=== PATIENT | female | born 1955 | race Caucasian/White ===

== ENCOUNTER → 2018-01-23 | Outpatient (CLI) | payer OTHER ==
[2018-01-23 14:20] LABS: BASO # 0.1 10^3/uL (0.0-0.2); BASO % 1.2 % (0.0-1.0); EOS # 0.4 10^3/uL (0.0-0.50); EOS % 4.7 % (0.0-3.0); HEMATOCRIT 38.2 % (36.0-47.0); HEMOGLOBIN 12.6 g/dl (12.0-16.0); IMMATURE GRANULOCYTE % 0.1 % (0-3.0); LYMPH # 3.1 10^3/uL (1.5-4.5); LYMPH % 40.1 % (24.0-44.0); MEAN CORPUSCULAR HEMOGLOBIN 27.6 pg (27.0-33.0); MEAN CORPUSCULAR VOLUME 83.8 fl (80.0-96.0); MONO # 0.7 10^3/uL (0.0-0.8); MONO % 8.6 % (0.0-5.0); NEUTROPHILS # 3.5 10^3/uL (1.8-7.7); NEUTROPHILS % 45.3 % (36.0-66.0); PLATELET COUNT, AUTOMATED 259 10^3/uL (150-450); RED BLOOD COUNT 4.56 10^6/uL (4.00-5.40); RED CELL DISTRIBUTION WIDTH 13.8 % (11.5-14.5); WHITE BLOOD COUNT 7.7 10^3/uL (4.0-10.0)
[2018-01-23 14:47] LABS: ALBUMIN 3.8 GM/DL (3.2-5.2); ALKALINE PHOSPHATASE 58 U/L (45-117); ALT/SGPT 20 U/L (12-78); ANION GAP 6 MEQ/L (8-16); AST/SGOT 13 U/L (7-37); BILIRUBIN,TOTAL 0.4 MG/DL (0.2-1.0); BLOOD UREA NITROGEN 21 MG/DL (7-18); CALCIUM LEVEL 9.1 MG/DL (8.8-10.2); CARBON DIOXIDE LEVEL 28 MEQ/L (21-32); CHLORIDE LEVEL 107 MEQ/L (98-107); CHOLESTEROL LEVEL 256 MG/DL (<200); GLOMERULAR FILTRATION RATE > 60.0 (>45); GLUCOSE, FASTING 97 MG/DL (70-100); HDL CHOLESTEROL 50 MG/DL (>40); LDL CHOLESTEROL 152.8 MG/DL (<100); NON-HDL-C 206 MG/DL; POTASSIUM SERUM 4.4 MEQ/L (3.5-5.1); SODIUM LEVEL 141 MEQ/L (136-145); TOTAL PROTEIN 7.6 GM/DL (6.4-8.2); TRIGLYCERIDES LEVEL 266 MG/DL (<150)
== END ==
LOC: M WUC 08:55
DX: E03.9 Hypothyroidism, unspecified (principal); I10 Essential (primary) hypertension; E78.5 Hyperlipidemia, unspecified; F41.1 Generalized anxiety disorder
CPT/HCPCS: 84443

== ENCOUNTER 2019-03-20 08:31 | Emergency (ER) | payer BC, MEDICAID, OTHER ==
[~2019-03-20] VITALS: Ht 167.6 cm; Wt 112.7 kg
[2019-03-20] MEDS ORDERED: LISI10TA2 (08:42)
[2019-03-20] MEDS ORDERED: ESCI10TA2 (08:42)
[2019-03-20] MEDS ORDERED: ALPR0.25 (08:42)
[2019-03-20] MEDS ORDERED: CYCL10TA (08:42)
[2019-03-20] MEDS ORDERED: LEVO75TA4 (08:42)
[2019-03-20 09:17] LABS: BASO % 0.3 % (0.0-1.0); EOS % 0.4 % (0.0-3.0); HEMATOCRIT 36.8 % (36.0-47.0); HEMOGLOBIN 12.3 g/dl (12.0-15.5); LYMPH # 0.6 10^3/uL (1.5-4.5); LYMPH % 5.7 % (24.0-44.0); MEAN CORPUSCULAR HGB CONC 33.4 g/dl (32.0-36.5); MEAN CORPUSCULAR VOLUME 83.6 fl (80.0-96.0); MONO # 0.4 10^3/uL (0.0-0.8); NEUTROPHILS # 9.1 10^3/uL (1.8-7.7); PLATELET COUNT, AUTOMATED 184 10^3/uL (150-450); WHITE BLOOD COUNT 10.3 10^3/uL (4.0-10.0)
[2019-03-20] MEDS ORDERED: ACETAMINOPHEN TAB 650MG DOSE (2X325MG) PO ONE (09:30)
[2019-03-20 09:50] LABS: ALBUMIN 3.4 GM/DL (3.2-5.2); ALT/SGPT 20 U/L (12-78); BILIRUBIN,DIRECT 0.3 MG/DL (0.0-0.2); BILIRUBIN,TOTAL 1.2 MG/DL (0.2-1.0); BLOOD UREA NITROGEN 14 MG/DL (7-18); CALCIUM LEVEL 8.6 MG/DL (8.8-10.2); CARBON DIOXIDE LEVEL 26 MEQ/L (21-32); CHLORIDE LEVEL 104 MEQ/L (98-107); CREATININE FOR GFR 0.97 MG/DL (0.55-1.30); GLOMERULAR FILTRATION RATE > 60.0 (>45); GLUCOSE, FASTING 136 MG/DL (70-100); LIPASE 132 U/L (73-393); POTASSIUM SERUM 3.5 MEQ/L (3.5-5.1); SODIUM LEVEL 139 MEQ/L (136-145); TOTAL PROTEIN 7.1 GM/DL (6.4-8.2)
[2019-03-20] MEDS: GASTROGRAFIN SOLUTION 30ML PO SCH ×2 (11:01→11:37)
--- NOTE | 2019-03-20 12:09 | REP ---
CHEST, TWO VIEWS: No comparison. There is no evidence of acute infiltrate. No pleural effusion is seen. The heart is normal in size. The mediastinal silhouette is unremarkable. The visualized osseous structures are intact. There are degenerative changes of the spine. IMPRESSION: No acute pulmonary disease. Electronically Signed by Epi Tatum MD 03/21/2019 10:54 A
[2019-03-20] MEDS ORDERED: ISOVUE-370 76% 100ML VIAL (Q9967) As Ordered ONE (12:28)
[2019-03-20 12:32] LABS: INFLUENZA A AMPLIFICATION NEGATIVE (NEGATIVE); INFLUENZA B AMPLIFICATION NEGATIVE (NEGATIVE)
[2019-03-20] MEDS ORDERED: AUGMENTIN 875 MG TAB PO ONE (14:15)
[2019-03-20] MEDS ORDERED: AUGM875T28 PO (14:20)
[2019-03-20 14:32] VITALS: BP 126/62
--- NOTE | 2019-03-20 14:47 | REP ---
CT ABDOMEN AND PELVIS WITH ORAL AND IV CONTRAST: TECHNIQUE: Axial contrast enhanced images from the lung bases to the pubic symphysis using 100 mL Isovue 370 intravenous contrast material with multiplanar reformations. COMPARISON: 01/30/2019, [facility]. Lung bases demonstrate mild fibrotic change, which is stable. The liver demonstrates no mass. The spleen and left adrenal are unremarkable. There is a small right adrenal nodule 1.8 cm in diameter, essentially stable since the 01/20/2006 exam and consistent with a benign adrenal adenoma. Pancreas is unremarkable. Patient has had a prior cholecystectomy with slight prominence of the biliary system as expected. Kidneys demonstrate no hydronephrosis. Oval cyst of the right kidney is again noted 1.9 cm in maximum diameter. There is atherosclerotic calcification of the abdominal aorta without aneurysm. There is diastasis of the rectus muscles with protrusion of abdominal contents anteriorly diffusely. There is scattered diverticulosis of the colon. There is thickening of a portion of the left transverse colon with surrounding streaky densities in the pericolonic fat, consistent with diverticulitis. There is no free air, free fluid, or fluid collection. No pelvic mass is seen. The urinary bladder is not distended and not well evaluated. IMPRESSION: Diverticulitis of the left transverse colon. No free air, free fluid, or fluid collection. Electronically Signed by Epi Tatum MD 03/21/2019 12:31 P
== END 2019-03-20 14:34 | disposition home or self-care (01) ==
LOC: EDBD 08:31 → M ED 08:31
DX: K57.92 Diverticulitis of intestine, part unspecified, without perforation or abscess without bleeding (principal); I10 Essential (primary) hypertension; E07.9 Disorder of thyroid, unspecified; F41.9 Anxiety disorder, unspecified; Z79.899 Other long term (current) drug therapy; Z79.890 Hormone replacement therapy; Z88.1 Allergy status to other antibiotic agents; Z88.5 Allergy status to narcotic agent; Z88.8 Allergy status to other drugs, medicaments and biological substances
CPT/HCPCS: 36415; 71046; 74177; 80048; 80076; 81001; 83690; 85025; 87502; 93041; 99285; Q9963; Q9967

== ENCOUNTER → 2019-05-30 | Outpatient (REF) | payer BC ==
[~2019-05-30] MED LIST: ALPR0.25; AUGM875T28 PO; CYCL10TA; ESCI10TA2; LEVO75TA4; LISI10TA2
[2019-05-30 16:12] LABS: CLOSTRIDIUM DIFFICILE PCR NEGATIVE (NEGATIVE)
== END ==
LOC: M LAB REF 13:31
PROVIDERS: ATTEND Internal Medicine Gastroenterology
DX: R19.7 Diarrhea, unspecified (principal)

== ENCOUNTER 2019-08-06 09:27 | Day surgery (SDC) | payer MEDICARE, BC ==
[~2019-08-06] VITALS: Ht 170.2 cm; Wt 115.2 kg
[~2019-08-06 09:27] MED LIST changes: -ALPR0.25; +ALPR0.25 PO; +BRONCHW PO; -CYCL10TA; +CYCL10TA PO; -ESCI10TA2; +ESCI10TA2 PO; -LEVO75TA4; +LEVO75TA4 PO; +LIDOCAINE 2% INJ 100 MG/5 ML SDV (FOR ANES.) As Ordered ONE; +LISI10TA15; -LISI10TA2; +NS 1,000 ML IV ONE; +PROBCAP5 PO; +PROPOFOL 200 MG/20 ML VIAL As Ordered ONE
--- NOTE | 2019-08-06 10:42 | ROOR ---
Patient Name: Hilaria Noonan Procedure Date: 08/06/2019 10:19 AM Date of : 1955 Age: 64 Room: [facility] Gender: Female Note Status: Finalized Procedure: Colonoscopy Indications: Clinically significant diarrhea of unexplained origin, Abnormal CT of the GI tract Providers: Elie ARREGUIN MD Referring MD: ADÁN MEYER Requesting Provider: Medicines: Monitored Anesthesia Care Complications: No immediate complications. Procedure: Pre-Anesthesia Assessment: - The heart rate, respiratory rate, oxygen saturations, blood pressure, adequacy of pulmonary ventilation, and response to care were monitored throughout the procedure. The Colonoscope was introduced through the anus and advanced to 10 cm into the ileum. The colonoscopy was performed without difficulty. The patient tolerated the procedure well. The quality of the bowel preparation was good. Findings: The perianal and digital rectal examinations were normal. There was evidence of a prior end-to-end colo-colonic anastomosis in the recto-sigmoid colon. This was patent and was characterized by healthy appearing mucosa. A diminutive polyp was found in the rectum. The polyp was sessile. The polyp was removed with a jumbo cold forceps. Resection and retrieval were complete. Multiple small-mouthed diverticula were found in the entire colon. The exam was otherwise normal throughout the examined colon. The terminal ileum appeared normal. Biopsies for histology were taken with a cold forceps for evaluation of microscopic colitis. Impression: - Patent end-to-end colo-colonic anastomosis, characterized by healthy appearing mucosa. - One diminutive polyp in the rectum, removed with a jumbo cold forceps. Resected and retrieved. - Mild scattered diverticulosis in the entire colon. - The colon is otherwise normal. Biopsies were taken with a cold forceps for evaluation of microscopic colitis. - The examined portion of the ileum was normal. Recommendation: - Telephone endoscopist for pathology results in 2 weeks. - Continue present medications. - Use fiber, for example Citrucel, Fibercon, Konsyl or Metamucil. - Imodium 1 tablet PO BID. - Imodium 2 tablets PO BID. Elie Arreguin MD Elie ARREGUIN MD 08/06/2019 10:42:50 AM Electronically signed by Elie ARREGUIN MD Number of Addenda: 0 Note Initiated On: 08/06/2019 10:19 AM Estimated Blood Loss: Estimated blood loss: none.
[2019-08-06 11:00] VITALS: BP 181/84
== END 2019-08-06 11:07 | disposition home or self-care (01) ==
LOC: M OPP 09:27
PROVIDERS: ATTEND Internal Medicine Gastroenterology
DX: R93.5 Abnormal findings on diagnostic imaging of other abdominal regions, including retroperitoneum (principal); R19.7 Diarrhea, unspecified; K62.1 Rectal polyp; Z98.0 Intestinal bypass and anastomosis status; K57.30 Diverticulosis of large intestine without perforation or abscess without bleeding; I10 Essential (primary) hypertension; E03.9 Hypothyroidism, unspecified; K57.32 Diverticulitis of large intestine without perforation or abscess without bleeding; M19.90 Unspecified osteoarthritis, unspecified site; F41.9 Anxiety disorder, unspecified; F32.9 Major depressive disorder, single episode, unspecified; G43.909 Migraine, unspecified, not intractable, without status migrainosus; Z87.891 Personal history of nicotine dependence; Z88.5 Allergy status to narcotic agent; Z88.8 Allergy status to other drugs, medicaments and biological substances; Z91.048 Other nonmedicinal substance allergy status; Z79.899 Other long term (current) drug therapy

== ENCOUNTER 2020-08-28 01:37 | Emergency (ER) | payer MEDICARE, BC ==
[~2020-08-28] VITALS: Ht 165.1 cm; Wt 115.9 kg
[~2020-08-28 01:37] MED LIST changes: +CYCL-707 PO; -CYCL10TA PO; -LIDOCAINE 2% INJ 100 MG/5 ML SDV (FOR ANES.) As Ordered ONE; -NS 1,000 ML IV ONE; -PROPOFOL 200 MG/20 ML VIAL As Ordered ONE
[2020-08-28 01:40] VITALS: BP 167/74
[2020-08-28] MEDS ORDERED: TRAM50TA2 PO (01:51)
[2020-08-28] MEDS ORDERED: AMOX875T2 PO (01:51)
[2020-08-28] MEDS ORDERED: FAMO1TAB11 PO (01:51)
[2020-08-28] MEDS ORDERED: GABA-1171 PO (01:51)
[2020-08-28] MEDS ORDERED: PANT40TA29 PO (01:51)
== END 2020-08-28 02:42 | disposition home or self-care (01) ==
LOC: M ED 01:37
DX: K91.89 Other postprocedural complications and disorders of digestive system (principal); K57.92 Diverticulitis of intestine, part unspecified, without perforation or abscess without bleeding; I10 Essential (primary) hypertension; F41.9 Anxiety disorder, unspecified; Z98.84 Bariatric surgery status; Z88.5 Allergy status to narcotic agent; Z88.1 Allergy status to other antibiotic agents; Z91.048 Other nonmedicinal substance allergy status; Z79.899 Other long term (current) drug therapy; Z79.2 Long term (current) use of antibiotics

== ENCOUNTER 2021-07-07 12:10 | Outpatient (RCR) | payer MEDICARE, BC | END 2021-07-29 | LOC: M PT 12:10 | PROVIDERS: ATTEND Orthopaedic Surgery | DX: M17.12 Unilateral primary osteoarthritis, left knee (principal) ==

== ENCOUNTER → 2021-07-07 | Outpatient (CLI) | payer MEDICARE, BC ==
[~2021-07-07] MED LIST changes: +AMOX875T2 PO; +ESCI10TA16 PO; -ESCI10TA2 PO; +FAMO1TAB11 PO; +GABA-1171 PO; +PANT40TA29 PO; +TRAM50TA2 PO
[2021-07-07 12:28] LABS: BASO # 0.1 10^3/uL (0.0-0.2); BASO % 1.1 % (0.0-1.0); EOS # 0.3 10^3/uL (0.0-0.5); EOS % 4.7 % (0.0-3.0); HEMATOCRIT 36.5 % (36.0-47.0); HEMOGLOBIN 12.3 g/dl (12.0-15.5); LYMPH # 2.7 10^3/uL (1.5-5.0); LYMPH % 38.2 % (24.0-44.0); MEAN CORPUSCULAR HEMOGLOBIN 28.3 pg (27.0-33.0); MEAN CORPUSCULAR HGB CONC 33.7 g/dl (32.0-36.5); MEAN CORPUSCULAR VOLUME 83.9 fl (80.0-96.0); MONO # 0.8 10^3/uL (0.0-0.8); MONO % 11.6 % (2.0-8.0); NEUTROPHILS # 3.1 10^3/uL (1.5-8.5); PLATELET COUNT, AUTOMATED 247 10^3/uL (150-450); RED BLOOD COUNT 4.35 10^6/uL (4.00-5.40)
[2021-07-07 13:02] LABS: ALBUMIN 3.7 GM/DL (3.2-5.2); PERCENT SATURATION 14.1 % (13.2-45.0)
== END ==
LOC: M LAB 11:39
PROVIDERS: ATTEND Orthopaedic Surgery
DX: M17.12 Unilateral primary osteoarthritis, left knee (principal); D50.9 Iron deficiency anemia, unspecified

== ENCOUNTER 2021-09-22 12:12 | Outpatient (RCR) | payer MEDICARE, BC ==
[~2021-09-22 12:12] MED LIST changes: -LISI10TA15; +LISI10TA24
== END 2021-09-28 ==
LOC: M PT 12:12
PROVIDERS: ATTEND Orthopaedic Surgery
DX: Z01.818 Encounter for other preprocedural examination (principal); M17.12 Unilateral primary osteoarthritis, left knee; M25.562 Pain in left knee

== ENCOUNTER 2021-09-29 10:58 | Outpatient (RCR) | payer MEDICARE, BC ==
[~2021-09-29 10:58] MED LIST changes: +LISI10TA15; -LISI10TA24
== END 2021-10-29 ==
LOC: M PT 10:58
PROVIDERS: ATTEND Orthopaedic Surgery
DX: Z96.652 Presence of left artificial knee joint (principal); M17.12 Unilateral primary osteoarthritis, left knee; M25.562 Pain in left knee

== ENCOUNTER 2022-02-21 10:38 | Inpatient (IN) | payer MEDICARE, BC ==
[~2022-02-21] VITALS: Ht 167.6 cm; Wt 101.8 kg
[~2022-02-21 10:38] MED LIST changes: -LISI10TA15; +LISI10TA24 PO
[2022-02-21 11:09] LABS: HEMATOCRIT 38.9 % (36.0-47.0); HEMOGLOBIN 13.1 g/dl (12.0-15.5); MEAN CORPUSCULAR HGB CONC 33.7 g/dl (32.0-36.5); MEAN CORPUSCULAR VOLUME 83.1 fl (80.0-96.0); PLATELET COUNT, AUTOMATED 268 10^3/uL (150-450); RED BLOOD COUNT 4.68 10^6/uL (4.00-5.40); WHITE BLOOD COUNT 5.4 10^3/uL (4.0-10.0)
[2022-02-21 11:50] LABS: ACETAMINOPHEN LEVEL < 2.0 UG/ML (10.0-30.0); ALT/SGPT 24 U/L (12-78); BILIRUBIN,DIRECT < 0.1 MG/DL (0.0-0.2); BILIRUBIN,TOTAL 0.3 MG/DL (0.2-1.0); BLOOD UREA NITROGEN 22 MG/DL (7-18); CALCIUM LEVEL 9.5 MG/DL (8.8-10.2); CARBON DIOXIDE LEVEL 26 MEQ/L (21-32); CHLORIDE LEVEL 107 MEQ/L (98-107); CREATININE FOR GFR 1.41 MG/DL (0.55-1.30); ETHYL ALCOHOL (ETHANOL) < 0.003 % (0.000-0.010); GLOMERULAR FILTRATION RATE 39.5 (>45); GLUCOSE, FASTING 103 MG/DL (70-100); POTASSIUM SERUM 3.9 MEQ/L (3.5-5.1); SALICYLATE LEVEL < 1.7 MG/DL (5.0-30.0); SODIUM LEVEL 140 MEQ/L (136-145); TOTAL PROTEIN 7.3 GM/DL (6.4-8.2)
[2022-02-21 12:06] LABS: AMPHETAMINES LEVEL URINE NEGATIVE (NEGATIVE); BARBITURATES URINE NEGATIVE (NEGATIVE); BENZODIAZEPINES URINE NEGATIVE (NEGATIVE); CANNABINOIDS URINE POSITIVE (NEGATIVE); COCAINE METABOLITE URINE NEGATIVE (NEGATIVE); METHADONE URINE NEGATIVE (NEGATIVE); OPIATES URINE NEGATIVE (NEGATIVE); PHENCYCLIDINE URINE NEGATIVE (NEGATIVE)
[2022-02-21 12:41] LABS: RSV AMPLIFICATION NEGATIVE (NEGATIVE)
[2022-02-21] MEDS ORDERED: LEVO88TA3 PO (13:36)
[2022-02-21] MEDS ORDERED: MELO15TA28 PO (13:45)
[2022-02-21] MEDS ORDERED: HYDR-3363 PO (13:45)
[2022-02-21] MEDS ORDERED: FENO134C16 PO (13:45)
[2022-02-21] MEDS ORDERED: MED NOTE (13:50)
[2022-02-21] MEDS ORDERED: HOME MED LIST COMPLETE! XX SCH (13:55)
[2022-02-21] MEDS ORDERED: ACETAMINOPHEN 325 MG TAB PO ONE (14:30)
[2022-02-21] MEDS ORDERED: NICOTINE 21MG/24HR 1 EA TRANSDERMAL TD PRN (21:40)
[2022-02-21] MEDS ORDERED: MAALOX 30 ML SUSP *UDC PO PRN (21:40)
[2022-02-21] MEDS ORDERED: LORazepam 1 MG TAB PO PRN (21:40)
[2022-02-21] MEDS ORDERED: MOM 30ML SUSPENSION UDC PO PRN (21:40)
[2022-02-21] MEDS ORDERED: OLANZapine ORAL DISINTEGRATING TAB 5MG PO PRN (21:40)
[2022-02-21] MEDS ORDERED: ACETAMINOPHEN TAB 650MG DOSE (2X325MG) PO PRN (21:40)
[2022-02-21] MEDS ORDERED: ALPRAZolam 0.5 MG TAB PO ONE (21:40)
[2022-02-21] MEDS ORDERED: hydrOXYzine 10 MG TAB PO ONE (22:15)
[2022-02-21] MEDS ORDERED: diphenhydrAMINE 25MG CAP PO ONE (22:15)
[2022-02-22] MEDS: traZODone 50 MG TAB PO PRN ×2 (04:33→21:02)
[2022-02-22] MEDS: LEVOTHYROXINE 88MCG TABLET (0.088 MG) PO SCH (04:33)
[2022-02-22] MEDS: ALPRAZolam 0.25 MG TAB PO SCH ×3 (09:00→21:02)
[2022-02-22] MEDS ORDERED: MELOXICAM (MOBIC) 7.5 MG TAB PO SCH (09:00)
[2022-02-22] MEDS ORDERED: LEVOTHYROXINE 75MCG TABLET (0.075MG) PO SCH (09:00)
[2022-02-22] MEDS: FENOFIBRATE 145MG TABLET (TRICOR) PO SCH (14:54)
[2022-02-22] MEDS: hydroCHLOROthiazide 12.5 MG CAPSULE PO SCH (14:54)
[2022-02-22 18:00] VITALS: BP 132/63
[2022-02-23] MEDS: LEVOTHYROXINE 88MCG TABLET (0.088 MG) PO SCH (06:01)
[2022-02-23 07:11] VITALS: BP 153/72
[2022-02-23] MEDS: ALPRAZolam 0.25 MG TAB PO SCH (09:00)
[2022-02-23 09:34] VITALS: BP 118/72
[2022-02-23] MEDS: FENOFIBRATE 145MG TABLET (TRICOR) PO SCH (09:34)
[2022-02-23] MEDS: hydroCHLOROthiazide 12.5 MG CAPSULE PO SCH (09:34)
[2022-02-23] MEDS ORDERED: TRAZ-252 PO (11:28)
== END 2022-02-23 13:21 | disposition home or self-care (01) | DRG 881 ==
LOC: M ED 10:38 → M ED INP 21:37 → M PSY 02-22 04:14
PROVIDERS: ADMIT Psychiatry & Neurology Psychiatry; ATTEND Psychiatry & Neurology Psychiatry
DX: F43.21 Adjustment disorder with depressed mood (principal); Z79.899 Other long term (current) drug therapy; Z88.5 Allergy status to narcotic agent; Z88.1 Allergy status to other antibiotic agents; Z88.8 Allergy status to other drugs, medicaments and biological substances; Z91.048 Other nonmedicinal substance allergy status

== ENCOUNTER → 2023-01-31 | Outpatient (CLI) | payer MEDICARE, BC ==
[~2023-01-31] MED LIST changes: +FENO134C20 PO; +HYDR-3363 PO; +LEVO88TA3 PO; +MED NOTE; +MELO15TA28 PO; +TRAZ-252 PO
[2023-01-31 17:01] LABS: ALBUMIN 4.2 G/DL (3.2-5.2); ALKALINE PHOSPHATASE 62 U/L (46-116); ALT/SGPT 16 U/L (7.0-40); AST/SGOT 17 U/L (<34); BILIRUBIN,TOTAL 0.3 MG/DL (0.3-1.2); BLOOD UREA NITROGEN 25 MG/DL (9-23); CALCIUM LEVEL 9.7 MG/DL (8.3-10.6); CARBON DIOXIDE LEVEL 28 MMOL/L (20-31); CHLORIDE LEVEL 105 MMOL/L (98-107); CHOLESTEROL LEVEL 208 MG/DL (<200); CHOLESTEROL RISK RATIO 3.75 (<5); CREATININE FOR GFR 0.97 MG/DL (0.55-1.30); GLOMERULAR FILTRATION RATE > 60.0 (>45); GLUCOSE, FASTING 82 MG/DL (74-106); HDL CHOLESTEROL 55.4 MG/DL (>40); LDL CHOLESTEROL 99.8 MG/DL (<100); NON-HDL-C 152.6 MG/DL; POTASSIUM SERUM 4.3 MMOL/L (3.5-5.1); SODIUM LEVEL 142 MMOL/L (136-145); TOTAL PROTEIN 7.2 G/DL (5.7-8.2); TRIGLYCERIDES LEVEL 264 MG/DL (<150)
== END ==
LOC: M WUC 09:43
PROVIDERS: ATTEND Physician Assistant
DX: E78.5 Hyperlipidemia, unspecified (principal); I10 Essential (primary) hypertension

== ENCOUNTER 2023-03-19 06:34 | Inpatient (IN) | payer MEDICARE, BC ==
[~2023-03-19] VITALS: Ht 167.6 cm; Wt 109.7 kg
[2023-03-19] MEDS ORDERED: NS 1,000 ML IV ONE (07:25)
[2023-03-19] MEDS ORDERED: ACETAMINOPHEN 1000MG 100ML IV BAG IV ONE (07:25)
[2023-03-19] MEDS ORDERED: ONDANSETRON 4MG 2ML VIAL IV ONE (07:25)
[2023-03-19 07:53] LABS: BASO # 0.1 10^3/uL (0.0-0.2); BASO % 0.6 % (0.0-1.0); EOS % 0.1 % (0.0-3.0); HEMATOCRIT 43.4 % (36.0-47.0); HEMOGLOBIN 14.6 g/dl (12.0-15.5); LYMPH # 1.1 10^3/uL (1.5-5.0); LYMPH % 8.7 % (24.0-44.0); MEAN CORPUSCULAR HEMOGLOBIN 27.7 pg (27.0-33.0); MEAN CORPUSCULAR HGB CONC 33.6 g/dl (32.0-36.5); MEAN CORPUSCULAR VOLUME 82.4 fl (80.0-96.0); MONO # 0.5 10^3/uL (0.0-0.8); MONO % 3.9 % (2.0-8.0); NEUTROPHILS % 86.3 % (36.0-66.0); PLATELET COUNT, AUTOMATED 309 10^3/uL (150-450); RED BLOOD COUNT 5.27 10^6/uL (4.00-5.40); WHITE BLOOD COUNT 12.7 10^3/uL (4.0-10.0)
[2023-03-19 08:15] LABS: LIPASE 37 U/L (12-53)
[2023-03-19 08:17] LABS: ALBUMIN 4.3 G/DL (3.2-5.2); ALKALINE PHOSPHATASE 60 U/L (46-116); ALT/SGPT 19 U/L (7.0-40); AST/SGOT 21 U/L (<34); BILIRUBIN,DIRECT 0.2 MG/DL (<0.4); BILIRUBIN,TOTAL 0.6 MG/DL (0.3-1.2); BLOOD UREA NITROGEN 21 MG/DL (9-23); CALCIUM LEVEL 10.7 MG/DL (8.3-10.6); CARBON DIOXIDE LEVEL 25 MMOL/L (20-31); CHLORIDE LEVEL 102 MMOL/L (98-107); CREATININE FOR GFR 0.95 MG/DL (0.55-1.30); GLOMERULAR FILTRATION RATE > 60.0 (>45); GLUCOSE, FASTING 148 MG/DL (74-106); SODIUM LEVEL 138 MMOL/L (136-145); TOTAL PROTEIN 7.7 G/DL (5.7-8.2)
[2023-03-19] MEDS ORDERED: VANCOMYCIN HCL 1,000 MG, VIAL MATE ADAPTER 1 EACH in NS 250 ML IV ONE (08:25)
[2023-03-19] MEDS ORDERED: PIPERACILLIN/TAZOBACTAM SOD 3.375 GM in D5W MINI-BAG PLUS 50 ML IV ONE (08:25)
[2023-03-19] MEDS ORDERED: ISOVUE-370 76% 100ML VIAL As Ordered ONE (08:26)
[2023-03-19] MEDS ORDERED: METOCLOPRAMIDE INJ 10MG/2ML VIAL IV ONE (10:50)
[2023-03-19] MEDS ORDERED: ACETAMINOPHEN TAB 650MG DOSE (2X325MG) PO PRN (11:05)
[2023-03-19] MEDS ORDERED: ONDANSETRON 4MG 2ML VIAL IV PRN (11:05)
[2023-03-19] MEDS ORDERED: PROMETHAZINE 25MG/ML 1ML VIAL IV PRN (11:05)
[2023-03-19] MEDS: LR 1,000 ML IV SCH ×2 (11:42→20:18)
[2023-03-19] MEDS ORDERED: RAME8TAB2 PO (12:20)
[2023-03-19] MEDS ORDERED: TRAZ-252 PO (12:20)
[2023-03-19] MEDS ORDERED: LISI20TA33 PO (12:21)
[2023-03-19] MEDS ORDERED: HOME MED LIST COMPLETE! XX SCH (12:25)
[2023-03-19 13:24] VITALS: BP 152/72
[2023-03-19] MEDS: PANTOPRAZOLE 40MG VIAL IV SCH (13:44)
[2023-03-19] MEDS: KETOROLAC 30 MG/ML 1ML VIAL IV PRN (20:23)
[2023-03-19] MEDS: ALVIMOPAN 12 MG CAPSULE (ENTEREG) PO SCH (20:30)
[2023-03-19] MEDS: traZODone 50 MG TAB PO SCH (20:34)
[2023-03-19] MEDS: RAMELTEON 8 MG TAB (ROZEREM) PO SCH (20:36)
[2023-03-19 20:53] VITALS: BP 122/72
[2023-03-20] MEDS: LR 1,000 ML IV SCH ×3 (03:15→19:37)
[2023-03-20] MEDS: LEVOTHYROXINE 88MCG TABLET (0.088 MG) PO SCH (05:43)
[2023-03-20 06:00] VITALS: BP 154/70
[2023-03-20 06:16] LABS: BASO # 0.1 10^3/uL (0.0-0.2); BASO % 0.9 % (0.0-1.0); EOS # 0.2 10^3/uL (0.0-0.5); EOS % 2.2 % (0.0-3.0); HEMATOCRIT 34.5 % (36.0-47.0); LYMPH # 3.1 10^3/uL (1.5-5.0); LYMPH % 37.1 % (24.0-44.0); MEAN CORPUSCULAR HEMOGLOBIN 28.5 pg (27.0-33.0); MEAN CORPUSCULAR HGB CONC 33.3 g/dl (32.0-36.5); MEAN CORPUSCULAR VOLUME 85.4 fl (80.0-96.0); MONO # 0.7 10^3/uL (0.0-0.8); MONO % 8.9 % (2.0-8.0); NEUTROPHILS # 4.2 10^3/uL (1.5-8.5); NEUTROPHILS % 50.5 % (36.0-66.0); PLATELET COUNT, AUTOMATED 219 10^3/uL (150-450); RED BLOOD COUNT 4.04 10^6/uL (4.00-5.40); WHITE BLOOD COUNT 8.2 10^3/uL (4.0-10.0)
[2023-03-20 06:17] LABS: HEMOGLOBIN 11.5 g/dl (12.0-15.5)
[2023-03-20 06:48] LABS: CREATININE FOR GFR 1.32 MG/DL (0.55-1.30); GLOMERULAR FILTRATION RATE 42.5 (>45); POTASSIUM SERUM 3.9 MMOL/L (3.5-5.1)
[2023-03-20] MEDS: ALVIMOPAN 12 MG CAPSULE (ENTEREG) PO SCH ×2 (08:43→22:06)
[2023-03-20] MEDS: ENOXAPARIN 40MG/0.4ML SYRINGE (J1650 PER 10MG) SC SCH ×2 (08:43→08:44)
[2023-03-20] MEDS ORDERED: NS 500 ML IV ONE (11:30)
[2023-03-20] MEDS: PANTOPRAZOLE 40MG VIAL IV SCH (12:13)
[2023-03-20] MEDS: MOM 30ML SUSPENSION UDC PO SCH (12:13)
[2023-03-20 14:00] VITALS: BP 130/80
[2023-03-20] MEDS: KETOROLAC 30 MG/ML 1ML VIAL IV PRN (14:27)
[2023-03-20 20:00] VITALS: BP 135/82
[2023-03-20] MEDS: RAMELTEON 8 MG TAB (ROZEREM) PO SCH (22:06)
[2023-03-20] MEDS: traZODone 50 MG TAB PO SCH (22:06)
[2023-03-21] MEDS: LR 1,000 ML IV SCH (03:28)
[2023-03-21] MEDS: LEVOTHYROXINE 88MCG TABLET (0.088 MG) PO SCH (05:33)
[2023-03-21 06:00] VITALS: BP 140/80
[2023-03-21] MEDS: ENOXAPARIN 40MG/0.4ML SYRINGE (J1650 PER 10MG) SC SCH (08:40)
[2023-03-21] MEDS: MOM 30ML SUSPENSION UDC PO SCH (08:40)
[2023-03-21] MEDS: ALVIMOPAN 12 MG CAPSULE (ENTEREG) PO SCH (08:41)
== END 2023-03-21 08:47 | disposition home or self-care (01) | DRG 390 ==
LOC: M ED 06:34 → M ED INP 11:01 → M MSPAV 13:24
PROVIDERS: ADMIT Surgery; ATTEND Surgery
DX: K56.50 Intestinal adhesions [bands], unspecified as to partial versus complete obstruction (principal); I10 Essential (primary) hypertension; E78.00 Pure hypercholesterolemia, unspecified; G43.909 Migraine, unspecified, not intractable, without status migrainosus; E03.9 Hypothyroidism, unspecified; F32.A Depression, unspecified; F41.9 Anxiety disorder, unspecified; E87.6 Hypokalemia; Z90.49 Acquired absence of other specified parts of digestive tract; Z96.652 Presence of left artificial knee joint; Z79.890 Hormone replacement therapy; Z79.899 Other long term (current) drug therapy; Z88.5 Allergy status to narcotic agent; Z88.8 Allergy status to other drugs, medicaments and biological substances; Z91.048 Other nonmedicinal substance allergy status

== ENCOUNTER → 2023-03-28 | Outpatient (CLI) | payer MEDICARE, BC ==
[~2023-03-28] MED LIST changes: +LISI20TA33 PO; +RAME8TAB2 PO
[2023-03-28 18:01] LABS: ALBUMIN 4.1 G/DL (3.2-5.2); ALKALINE PHOSPHATASE 65 U/L (46-116); ALT/SGPT 22 U/L (7.0-40); AST/SGOT 17 U/L (<34); BILIRUBIN,TOTAL 0.4 MG/DL (0.3-1.2); BLOOD UREA NITROGEN 21 MG/DL (9-23); CALCIUM LEVEL 9.3 MG/DL (8.3-10.6); CARBON DIOXIDE LEVEL 27 MMOL/L (20-31); CHLORIDE LEVEL 105 MMOL/L (98-107); CREATININE FOR GFR 0.96 MG/DL (0.55-1.30); GLOMERULAR FILTRATION RATE > 60.0 (>45); GLUCOSE, FASTING 99 MG/DL (74-106); POTASSIUM SERUM 3.9 MMOL/L (3.5-5.1); SODIUM LEVEL 142 MMOL/L (136-145)
== END ==
LOC: M WUC 14:04
PROVIDERS: ATTEND Physician Assistant
DX: N17.9 Acute kidney failure, unspecified (principal)

== ENCOUNTER → 2023-08-08 | Outpatient (REF) | payer MEDICARE | LOC: M LAB REF 18:09 | PROVIDERS: ATTEND Otolaryngology | DX: K13.79 Other lesions of oral mucosa (principal) ==

== ENCOUNTER → 2024-03-11 | Outpatient (CLI) | payer MEDICARE ==
[2024-03-11 10:32] LABS: HEMATOCRIT 41.5 % (36.0-47.0); HEMOGLOBIN 13.6 g/dl (12.0-15.5); MEAN CORPUSCULAR HEMOGLOBIN 27.4 pg (27.0-33.0); MEAN CORPUSCULAR HGB CONC 32.8 g/dl (32.0-36.5); MEAN CORPUSCULAR VOLUME 83.7 fl (80.0-96.0); PLATELET COUNT, AUTOMATED 268 10^3/uL (150-450); RED BLOOD COUNT 4.96 10^6/uL (4.00-5.40)
[2024-03-11 10:36] LABS: ALBUMIN 3.6 G/DL (3.2-5.2); ALKALINE PHOSPHATASE 72 U/L (46-116); ALT/SGPT 17 U/L (7.0-40); AST/SGOT 12 U/L (<34); BILIRUBIN,TOTAL 0.6 MG/DL (0.3-1.2); BLOOD UREA NITROGEN 20 MG/DL (9-23); CALCIUM LEVEL 9.5 MG/DL (8.3-10.6); CARBON DIOXIDE LEVEL 28 MMOL/L (20-31); CHLORIDE LEVEL 106 MMOL/L (98-107); CHOLESTEROL LEVEL 259 MG/DL (<200); CHOLESTEROL RISK RATIO 4.93 (<5); CREATININE FOR GFR 0.86 MG/DL (0.55-1.30); GLOMERULAR FILTRATION RATE > 60.0 (>39); GLUCOSE, FASTING 98 MG/DL (74-106); HDL CHOLESTEROL 52.5 MG/DL (>40); LDL CHOLESTEROL 159.1 MG/DL (<100); NON-HDL-C 206.5 MG/DL; POTASSIUM SERUM 4.4 MMOL/L (3.5-5.1); SODIUM LEVEL 142 MMOL/L (136-145); TOTAL PROTEIN 6.9 G/DL (5.7-8.2); TRIGLYCERIDES LEVEL 237 MG/DL (<150)
[2024-03-11 10:37] LABS: THYROID STIMULATING HORMONE 3.215 uIU/ML (0.55-4.78)
[2024-03-12 06:36] LABS: WHITE BLOOD COUNT 7.9 10^3/uL (4.0-10.0)
== END ==
LOC: M WUC 08:04
PROVIDERS: ATTEND Physician Assistant
DX: I10 Essential (primary) hypertension (principal); E03.9 Hypothyroidism, unspecified; E78.5 Hyperlipidemia, unspecified

== ENCOUNTER → 2024-11-28 | Outpatient (CLI) | payer MEDICARE ==
[2024-11-28 11:53] LABS: BASO # 0.1 10^3/uL (0.0-0.2); BASO % 1.5 % (0.0-1.0); EOS # 0.3 10^3/uL (0.0-0.5); EOS % 4.2 % (0.0-3.0); HEMATOCRIT 38.2 % (36.0-47.0); HEMOGLOBIN 13.2 g/dl (12.0-15.5); LYMPH # 2.8 10^3/uL (1.5-5.0); LYMPH % 43.3 % (24.0-44.0); MEAN CORPUSCULAR HEMOGLOBIN 28.6 pg (27.0-33.0); MEAN CORPUSCULAR HGB CONC 34.6 g/dl (32.0-36.5); MEAN CORPUSCULAR VOLUME 82.7 fl (80.0-96.0); MONO # 0.5 10^3/uL (0.0-0.8); NEUTROPHILS # 2.8 10^3/uL (1.5-8.5); NEUTROPHILS % 42.8 % (36.0-66.0); PLATELET COUNT, AUTOMATED 227 10^3/uL (150-450); RED BLOOD COUNT 4.62 10^6/uL (4.00-5.40); WHITE BLOOD COUNT 6.5 10^3/uL (4.0-10.0)
[2024-11-28 12:05] LABS: ERYTHROCYTE SEDIMENTATION RATE 13 mm/hr (0-30)
== END ==
LOC: M LAB 10:31
PROVIDERS: ATTEND Optometrist
DX: M31.6 Other giant cell arteritis (principal)

== ENCOUNTER → 2024-12-23 | Outpatient (CLI) | payer MEDICARE ==
[2024-12-23 17:30] LABS: HEMATOCRIT 41.6 % (36.0-47.0); HEMOGLOBIN 13.7 g/dl (12.0-15.5); MEAN CORPUSCULAR HEMOGLOBIN 27.5 pg (27.0-33.0); MEAN CORPUSCULAR HGB CONC 32.9 g/dl (32.0-36.5); MEAN CORPUSCULAR VOLUME 83.4 fl (80.0-96.0); PLATELET COUNT, AUTOMATED 257 10^3/uL (150-450); RED BLOOD COUNT 4.99 10^6/uL (4.00-5.40)
[2024-12-23 17:51] LABS: ALBUMIN 3.9 G/DL (3.2-5.2); ALKALINE PHOSPHATASE 61 U/L (35-104); ALT/SGPT 16 U/L (7.0-40); AST/SGOT 16 U/L (<34); BILIRUBIN,TOTAL 0.5 MG/DL (0.3-1.2); BLOOD UREA NITROGEN 16 MG/DL (9-23); CALCIUM LEVEL 9.6 MG/DL (8.3-10.6); CARBON DIOXIDE LEVEL 27 MMOL/L (20-31); CHLORIDE LEVEL 105 MMOL/L (98-107); CHOLESTEROL LEVEL 267 MG/DL (<200); CHOLESTEROL RISK RATIO 5.29 (<5); CREATININE FOR GFR 0.87 MG/DL (0.55-1.30); GLOMERULAR FILTRATION RATE > 60.0 (>39); GLUCOSE, FASTING 80 MG/DL (74-106); HDL CHOLESTEROL 50.4 MG/DL (>40); LDL CHOLESTEROL 150.2 MG/DL (<100); NON-HDL-C 216.6 MG/DL; POTASSIUM SERUM 4.2 MMOL/L (3.5-5.1); SODIUM LEVEL 142 MMOL/L (136-145); TOTAL PROTEIN 7.5 G/DL (5.7-8.2); TRIGLYCERIDES LEVEL 332 MG/DL (<150)
[2024-12-24 06:56] LABS: WHITE BLOOD COUNT 8.2 10^3/uL (4.0-10.0)
== END ==
LOC: M WUC 14:37
PROVIDERS: ATTEND Physician Assistant
DX: I10 Essential (primary) hypertension (principal); E78.5 Hyperlipidemia, unspecified

== ENCOUNTER → 2025-06-03 | Outpatient (CLI) | payer MEDICARE ==
[2025-06-03 15:47] LABS: PLATELET COUNT, AUTOMATED 302 10^3/uL (150-450)
[2025-06-03 15:51] LABS: ALT/SGPT 29.0 U/L (7.0-40); AST/SGOT 46.0 U/L (<34); CALCIUM LEVEL 9.9 MG/DL (8.3-10.6); CARBON DIOXIDE LEVEL 26.0 MMOL/L (20-31); CHLORIDE LEVEL 105.0 MMOL/L (98-107); CHOLESTEROL LEVEL 193.0 MG/DL (<200); CHOLESTEROL RISK RATIO 5.42 (<5); CREATININE FOR GFR 0.89 MG/DL (0.55-1.30); GLOMERULAR FILTRATION RATE 69.3 (>39); LDL CHOLESTEROL 94.6 MG/DL (<100); NON-HDL-C 157.4 MG/DL; POTASSIUM SERUM 4.1 MMOL/L (3.5-5.1); SODIUM LEVEL 143.0 MMOL/L (136-145); TRIGLYCERIDES LEVEL 314.0 MG/DL (<150)
== END ==
LOC: M WUC 11:25
PROVIDERS: ATTEND Physician Assistant
DX: I10 Essential (primary) hypertension (principal); E78.2 Mixed hyperlipidemia; E03.9 Hypothyroidism, unspecified